=== PATIENT | male | born 1995 | race Caucasian/White ===

== ENCOUNTER 2020-10-05 18:05 | Emergency (ER) | payer OTHER ==
[2020-10-05] MEDS ORDERED: SODIUM CHLORIDE 0.9% 1,000 ML IV ONE ×2 (18:11→19:21)
[2020-10-05 18:21] LABS: Basophils # (A) 0.2 k/uL (0-0.2); Basophils % (A) 2 %; Eosinophils # (A) 0.3 k/uL (0-0.7); Eosinophils % (A) 3 %; HCT 42.1 % (39.0-53.0); HGB 14.6 gm/dL (13.0-17.5); Lymphocytes # (A) 2.9 k/uL (1.0-4.8); Lymphocytes % (A) 30 %; MCH 29.8 pg (25.0-35.0); MCHC 34.6 g/dL (31.0-37.0); Mean Platelet Volume 6.7; Monocytes # (A) 0.8 k/uL (0-1.0); Monocytes % (A) 8 %; Neutrophils # (A) 5.4 k/uL (1.3-7.7); Neutrophils % (A) 55 %; Platelet Count 412 k/uL (150-450); RDW 11.7 % (11.5-15.5); WBC 9.8 k/uL (3.8-10.6)
[2020-10-05 18:31] LABS: ALT 53 U/L (4-49); AST 34 U/L (17-59); African American GFR (CKD) >90 (>60 ml/min/1.73 sqM); Albumin 4.7 g/dL (3.5-5.0); Alkaline Phosphatase 77 U/L (38-126); Anion Gap 16 mmol/L; Blood Urea Nitrogen 11 mg/dL (9-20); Calcium 9.1 mg/dL (8.4-10.2); Carbon Dioxide 20 mmol/L (22-30); Chloride 109 mmol/L (98-107); Glucose 129 mg/dL (74-99); Non-African American GFR(CKD) >90 (>60 ml/min/1.73 sqM); Potassium 3.7 mmol/L (3.5-5.1); Sodium 145 mmol/L (137-145); Total Bilirubin 0.4 mg/dL (0.2-1.3); Total Protein 7.5 g/dL (6.3-8.2)
[2020-10-05 18:32] LABS: Prothrombin Time 10.6 sec (9.0-12.0)
--- NOTE | 2020-10-05 18:41 | ED ---
General Adult HPI - General Chief complaint: Overdose Stated complaint: unresponsive Time Seen by Provider: 10/05/20 18:07 Source: EMS, RN notes reviewed, old records reviewed Mode of arrival: EMS Limitations: no limitations - History of Present Illness Initial comments: 24-year-old male presenting with to mental status, vomiting and suspected EtOH. Patient was transported by EMS after being [place]. He had vomited all over his shirt. He was minimally responsive. He was brought in for urgent medical evaluation. Did note some swelling around his left eye. He was breathing spontaneously with normal oxygenation. - Related Data Home Medications Medication Instructions Recorded Confirmed No Known Home Medications 10/05/20 10/05/20 Allergies Allergy/AdvReac Type Severity Reaction Status Date / Time No Known Allergies Allergy Verified 10/05/20 18:20 Review of Systems ROS Statement: Those systems with pertinent positive or pertinent negative responses have been documented in the HPI. ROS Other: All systems not noted in ROS Statement are negative. Past Medical History Past Medical History: No Reported History History of Any Multi-Drug Resistant Organisms: None Reported Past Surgical History: No Surgical Hx Reported Past Psychological History: No Psychological Hx Reported General Exam Limitations: no limitations General appearance: obtunded, in distress Eye exam: Present: PERRL, periorbital swelling (Left) ENT exam: Present: mucous membranes dry Neck exam: Present: normal inspection. Absent: tenderness, meningismus Respiratory exam: Present: normal lung sounds bilaterally. Absent: respiratory distress, wheezes Cardiovascular Exam: Present: regular rate, normal rhythm GI/Abdominal exam: Present: soft. Absent: distended, tenderness, guarding, rebound Extremities exam: Present: normal inspection, normal capillary refill. Absent: pedal edema Neurological exam: Present: alert, oriented X3, CN II-XII intact. Absent: motor sensory deficit Psychiatric exam: Present: normal affect, normal mood Skin exam: Present: warm, intact, diaphoretic, pallor Course Vital Signs 10/05/20 18:10 Temperature 97.8 F Pulse Rate 89 Respiratory 16 Rate Blood Pressure 113/55 O2 Sat by Pulse 100 Oximetry - Reevaluation(s) Reevaluation #1: 10/05/20 20:56 reevaluated, he is able to answer questions. He admits to consuming alcohol at a friend's birthday alliance party. He is still intoxicated with stable vitals. He will be observed in the emergency department until he is sober or able to obtain a ride. EKG Findings - EKG Comments: EKG Findings:: EKG: Normal sinus rhythm, left atrial enlargement, rate of 96, ND interval 178, QRS duration 98, QTC 462 Medical Decision Making - Medical Decision Making 24-year-old male with suspected alcohol intoxication. On initial exam the patient is protecting his airway, he does have some episodes of vomiting. Stable vitals. He will respond minimally. He did have some periorbital swelling around the left eye and head CT was performed which is negative for intracranial hemorrhage or mass effect. CT cervical spine negative for fracture subluxation. Chest x-rays negative for acute cardio port disease. He has a normal CBC, normal CMP, elevated alcohol at 203. Repeat alcohol 179 to ensure that alcohol was not up trending. - Lab Data Result diagrams: 10/05/20 18:16 10/05/20 18:16 Lab Results 10/05/20 10/05/20 10/05/20 Range/Units 18:16 18:16 18:16 WBC 9.8 (3.8-10.6) k/uL RBC 4.90 (4.30-5.90) m/uL Hgb 14.6 (13.0-17.5) gm/dL Hct 42.1 (39.0-53.0) % MCV 86.0 (80.0-100.0) fL MCH 29.8 (25.0-35.0) pg MCHC 34.6 (31.0-37.0) g/dL RDW 11.7 (11.5-15.5) % Plt Count 412 (150-450) k/uL MPV 6.7 Neutrophils % 55 % Lymphocytes % 30 % Monocytes % 8 % Eosinophils % 3 % Basophils % 2 % Neutrophils # 5.4 (1.3-7.7) k/uL Lymphocytes # 2.9 (1.0-4.8) k/uL Monocytes # 0.8 (0-1.0) k/uL Eosinophils # 0.3 (0-0.7) k/uL Basophils # 0.2 (0-0.2) k/uL PT 10.6 (9.0-12.0) sec INR 1.0 (<1.2) APTT 21.0 L (22.0-30.0) sec Sodium 145 (137-145) mmol/L Potassium 3.7 (3.5-5.1) mmol/L Chloride 109 H (98-107) mmol/L Carbon Dioxide 20 L (22-30) mmol/L Anion Gap 16 mmol/L BUN 11 (9-20) mg/dL Creatinine 0.78 (0.66-1.25) mg/dL Est GFR (CKD-EPI)AfAm >90 (>60 ml/min/1.73 sqM) Est GFR (CKD-EPI)NonAf >90 (>60 ml/min/1.73 sqM) Glucose 129 H (74-99) mg/dL Calcium 9.1 (8.4-10.2) mg/dL Total Bilirubin 0.4 (0.2-1.3) mg/dL AST 34 (17-59) U/L ALT 53 H (4-49) U/L Alkaline Phosphatase 77 (38-126) U/L Troponin I (0.000-0.034) ng/mL Total Protein 7.5 (6.3-8.2) g/dL Albumin 4.7 (3.5-5.0) g/dL Urine Color Urine Appearance (Clear) Urine pH (5.0-8.0) Ur Specific Rake (1.001-1.035) Urine Protein (Negative) Urine Glucose (UA) (Negative) Urine Ketones (Negative) Urine Blood (Negative) Urine Nitrite (Negative) Urine Bilirubin (Negative) Urine Urobilinogen (<2.0) mg/dL Ur Leukocyte Esterase (Negative) Urine Opiates Screen (NotDetected) Ur Oxycodone Screen (NotDetected) Urine Methadone Screen (NotDetected) Ur Propoxyphene Screen (NotDetected) Ur Barbiturates Screen (NotDetected) U Tricyclic Antidepress (NotDetected) Ur Phencyclidine Scrn (NotDetected) Ur Amphetamines Screen (NotDetected) U Methamphetamines Scrn (NotDetected) U Benzodiazepines Scrn (NotDetected) Urine Cocaine Screen (NotDetected) U Marijuana (THC) Screen (NotDetected) Serum Alcohol 203 H* mg/dL 10/05/20 10/05/20 10/05/20 Range/Units 18:16 20:15 Unknown WBC (3.8-10.6) k/uL RBC (4.30-5.90) m/uL Hgb (13.0-17.5) gm/dL Hct (39.0-53.0) % MCV (80.0-100.0) fL MCH (25.0-35.0) pg MCHC (31.0-37.0) g/dL RDW (11.5-15.5) % Plt Count (150-450) k/uL MPV Neutrophils % % Lymphocytes % % Monocytes % % Eosinophils % % Basophils % % Neutrophils # (1.3-7.7) k/uL Lymphocytes # (1.0-4.8) k/uL Monocytes # (0-1.0) k/uL Eosinophils # (0-0.7) k/uL Basophils # (0-0.2) k/uL PT (9.0-12.0) sec INR (<1.2) APTT (22.0-30.0) sec Sodium (137-145) mmol/L Potassium (3.5-5.1) mmol/L Chloride (98-107) mmol/L Carbon Dioxide (22-30) mmol/L Anion Gap mmol/L BUN (9-20) mg/dL Creatinine (0.66-1.25) mg/dL Est GFR (CKD-EPI)AfAm (>60 ml/min/1.73 sqM) Est GFR (CKD-EPI)NonAf (>60 ml/min/1.73 sqM) Glucose (74-99) mg/dL Calcium (8.4-10.2) mg/dL Total Bilirubin (0.2-1.3) mg/dL AST (17-59) U/L ALT (4-49) U/L Alkaline Phosphatase (38-126) U/L Troponin I <0.012 (0.000-0.034) ng/mL Total Protein (6.3-8.2) g/dL Albumin (3.5-5.0) g/dL Urine Color Light Yellow Urine Appearance Clear (Clear) Urine pH 5.0 (5.0-8.0) Ur Specific Rake 1.009 (1.001-1.035) Urine Protein Negative (Negative) Urine Glucose (UA) Negative (Negative) Urine Ketones Negative (Negative) Urine Blood Negative (Negative) Urine Nitrite Negative (Negative) Urine Bilirubin Negative (Negative) Urine Urobilinogen <2.0 (<2.0) mg/dL Ur Leukocyte Esterase Negative (Negative) Urine Opiates Screen Not Detected (NotDetected) Ur Oxycodone Screen Not Detected (NotDetected) Urine Methadone Screen Not Detected (NotDetected) Ur Propoxyphene Screen Not Detected (NotDetected) Ur Barbiturates Screen Not Detected (NotDetected) U Tricyclic Antidepress Not Detected (NotDetected) Ur Phencyclidine Scrn Not Detected (NotDetected) Ur Amphetamines Screen Not Detected (NotDetected) U Methamphetamines Scrn Not Detected (NotDetected) U Benzodiazepines Scrn Not Detected (NotDetected) Urine Cocaine Screen Not Detected (NotDetected) U Marijuana (THC) Screen Detected H (NotDetected) Serum Alcohol 179 mg/dL Disposition Clinical Impression: Alcohol intoxication Disposition: HOME SELF-CARE Condition: Fair Instructions (If sedation given, give patient instructions): Alcohol Intoxication (ED) Is patient prescribed a controlled substance at d/c from ED?: No Referrals: Anam Porter MD [Primary Care Provider] - 1-2 days
[2020-10-05 18:54] LABS: Appearance,Urine Clear (Clear); Bilirubin,Urine Negative (Negative); Blood,Urine Negative (Negative); Color,Urine Light Yellow; Glucose,Urine (UA) Negative (Negative); Ketones,Urine Negative (Negative); Leukocyte Esterase,Urine Negative (Negative); Nitrite,Urine Negative (Negative); Protein,Urine Negative (Negative); Specific Gravity,Urine 1.009 (1.001-1.035); Urobilinogen,Urine <2.0 mg/dL (<2.0)
[2020-10-05 18:55] LABS: Alcohol 203 mg/dL
[2020-10-05 19:04] LABS: Amphetamine Screen,Urine Not Detected (NotDetected); Barbiturate Screen,Urine Not Detected (NotDetected); Benzodiazepines Screen,Urine Not Detected (NotDetected); Cocaine Screen,Urine Not Detected (NotDetected); Methadone Screen, Urine Not Detected (NotDetected); Opiate Screen,Urine Not Detected (NotDetected); Oxycodone Screen, Urine Not Detected (NotDetected); Phencyclidine Screen,Urine Not Detected (NotDetected); Tricyclic Antidepressant,Urine Not Detected (NotDetected); Urn Cannabinoid Scrn Detected (NotDetected)
--- NOTE | 2020-10-05 19:20 | XR ---
EXAMINATION TYPE: XR chest 1V portable DATE OF EXAM: 10/05/2020 COMPARISON: 01/22/2011 HISTORY: Overdose. Fall. TECHNIQUE: Single view FINDINGS: Heart size is normal. There are chest leads. Costophrenic angles are clear. There are no hi lar masses. Bony thorax is intact. Lungs appear clear of infiltrate. Exam limited by the patient's si ze and positioning. IMPRESSION: No active cardiopulmonary disease. Limited exam. Inspiration decreased compared to old ex am.
--- NOTE | 2020-10-05 19:22 | CT ---
EXAMINATION TYPE: CT brain ruiz wo con DATE OF EXAM: 10/05/2020 COMPARISON: 03/27/2013 HISTORY: Patient poor historian and has difficulty following directions. CT DLP: 457.1 mGycm Automated exposure control for dose reduction was used. Ventricles and sulci appear normal. There is no mass effect nor midline shift. There is no sign of in tracranial hemorrhage. There is no evidence of cerebral edema. The calvarium is intact. Skull base is intact. There is normal aeration of the mastoid sinuses. Cervical vertebra have normal spacing and alignment. Posterior elements are intact. Facet joints appe ar normal. There is no evidence of a fracture. Prevertebral soft tissues appear normal. Impression new left normal CT scan of the brain. Normal CT scan of the cervical spine.
[2020-10-05 23:22] VITALS: TEMP 98.1
[2020-10-06 00:16] VITALS: BP 120/75; PULSE 83; RESP 16
== END 2020-10-06 00:16 | disposition home or self-care (01) ==
LOC: EC 18:05
DX: F10.129 Alcohol abuse with intoxication, unspecified (principal); Y90.7 Blood alcohol level of 200-239 mg/100 ml
CPT/HCPCS: 36415; 70450; 71045; 72125; 80053; 80306; 80320; 81003; 84484; 85025; 85610; 85730; 93005; 96360; 96361; 99284